=== PATIENT | male | born 1985 | race African-American/Black ===

== ENCOUNTER 2017-11-13 06:40 | Inpatient (IN) | payer BC ==
[2017-11-09 15:15] VITALS: BMI 39.1
[2017-11-13] MEDS ORDERED: HEPARIN NA (PORCINE) 5,000 UNITS/ML 1ML VIAL ONE (07:01)
[2017-11-13] MEDS ORDERED: ceFAZolin SODIUM 1 GM VIAL ONE (07:32)
[2017-11-13] MEDS ORDERED: fentaNYL CITRATE 250 MCG/5 ML VIAL ONE ×2 (07:51→09:19)
[2017-11-13] MEDS ORDERED: LIDOCAINE HCL/PF 2% SDV 5ML VIAL ONE (07:51)
[2017-11-13] MEDS ORDERED: PROPOFOL 20 ML ONE ×4 (07:51→11:41)
[2017-11-13] MEDS ORDERED: ROCURONIUM BROMIDE 50 MG/5 ML VIAL ONE ×3 (07:51→10:29)
[2017-11-13] MEDS ORDERED: MIDAZOLAM HCL 2 MG/2 ML SINGLE DOSE VIAL ONE ×3 (07:51)
[2017-11-13] MEDS ORDERED: ceFAZolin SODIUM 1 GM VIAL IVPB ONE (08:30)
[2017-11-13] MEDS ORDERED: DEXAMETHASONE SOD PHOSPHATE 4 MG/1 ML VIAL ONE (09:10)
[2017-11-13] MEDS ORDERED: ONDANSETRON 4 MG/2 ML VIAL ONE ×2 (09:10→11:43)
[2017-11-13] MEDS ORDERED: PHENYLEPHRINE HCL 10 MG/1 ML SINGLE DOSE VIAL ONE (10:18)
[2017-11-13] MEDS ORDERED: BACITRACIN 15 GM TUBE TOPICAL OINTMENT ONE (11:21)
[2017-11-13] MEDS ORDERED: GLYCOPYRROLATE 0.2 MG/1 ML VIAL ONE (11:43)
[2017-11-13] MEDS ORDERED: NEOSTIGMINE METHYLSULFATE 0.5 MG/ML - 10 ML MDV ONE (11:43)
[2017-11-13] MEDS ORDERED: DESFLURANE GAS 240 ML BOTTLE IH ONE (11:47)
[2017-11-13] MEDS ORDERED: ONDANSETRON 4 MG/2 ML VIAL IVPUSH PRN (11:58)
[2017-11-13] MEDS ORDERED: LACTATED RINGERS SOLUTION 1,000 ML IV SCH ×2 (12:00→13:30)
--- NOTE | 2017-11-13 12:43 | OP ---
Operative Note - Note: Operative Date: 11/13/17 Pre-Operative Diagnosis: Ventral/umbilical hernia Operation: Open ventral/umbilical hernia repiar with mesh Post-Operative Diagnosis: Same as Pre-op Surgeon: Elvis Harris Lithographing Machine Operator: Rupesh Nelson (gisel sanchez) Anesthesia: General Specimens Removed: None Estimated Blood Loss (mls): 5 Operative Report Dictated: Yes
[2017-11-13] MEDS ORDERED: oxyCODONE HCL 5 MG TABLET PO PRN (13:20)
[2017-11-13] MEDS ORDERED: morphine CARPU-JECT 10 MG/1 ML DISP.SYRIN IVPUSH PRN (13:20)
[2017-11-13] MEDS ORDERED: ONDANSETRON 4 MG/2 ML VIAL IVPB PRN (13:20)
--- NOTE | 2017-11-13 13:23 | SURG ---
Surgery Jig Bore Tool Maker Note Jig Bore Tool Maker: Danie Valdes PA-C Date of Service: 11/13/17 Diagnosis: Umbilical hernia, diastasis Procedure: Umbilical hernia repair with mesh and plication of diastasis and abdominoplasty I was present for the entirety of the operative procedure. For further detail, please refer to operative report. Visit type - Case Type Case Type: Scheduled Admission - New patient This patient is new to me today: Yes Date on this admission: 11/13/17
--- NOTE | 2017-11-13 13:26 | OP ---
Operative Note - Note: Operative Date: 11/13/17 Pre-Operative Diagnosis: diastasis recti Operation: abdominoplasty with umbilical float Findings: diastasis with umbilical hernia Post-Operative Diagnosis: Same as Pre-op Surgeon: Rupesh Nelson Boat Ride Operator: Danie Valdes Anesthesia: General Specimens Removed: skin and fat Estimated Blood Loss (mls): 2 Operative Report Dictated: Yes
--- NOTE | 2017-11-13 13:45 | OP ---
DATE OF OPERATION: 11/13/2017 SURGEON: Alla Harris M.D. ELECTRONIC COMMERCE SPECIALIST: Rupesh Nelson M.D. and Danie Neil PREOPERATIVE DIAGNOSIS: Ventral/umbilical hernia. POSTOPERATIVE DIAGNOSIS: Ventral/umbilical hernia. PROCEDURE: Open repair of ventral/umbilical hernia with mesh. SPECIMEN: None. ESTIMATED BLOOD LOSS: 5 mL DRAINS: None. ANESTHESIA: General endotracheal anesthesia. MESH USED: A 9 cm Symbotex mesh cut to 7 cm diameter. REASON FOR PROCEDURE: This is a 32-year-old gentleman who was seen by Dr. Nelson in the office and noted to have a large mid abdominal rectus diastasis. In addition, an umbilical hernia was noted as well. I saw him in the office and noted the umbilical hernia to be present as well. After describing different options, we decided to proceed with an open ventral/umbilical hernia repair with mesh. The risks and benefits of the procedure were explained. 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 He understood and signed informed consent. PROCEDURE: Dr. Nelson began the procedure and lifted up the anterior abdominal skin and subcutaneous tissue. After Dr. Nelson developed the skin flap from inferiorly to superiorly, the ventral/umbilical hernia defect was noted. This was approximately 2 cm x 3 cm in size. A 9 cm Symbotex mesh was then chosen and cut to 7 cm in diameter. The mesh was secured with 0 Prolene sutures to the fascia and the hernia defect was covered. In addition, the fascia was over sewed over the mesh to add further security. The repair was noted to be secured at the end of the repair. The remainder of the procedure was done by Dr. Nelson who imbricated over the repair as well as part of the diastasis repair. Patient tolerated the procedure well, was transferred to the recovery room. 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 ALLA HARRIS M.D. [id number] [facility]
[2017-11-13] MEDS ORDERED: HYDROmorphone *PCA* 6MG/30ML DISP.SYRIN PCA ONE (13:57)
--- NOTE | 2017-11-13 13:58 | OP ---
DATE OF OPERATION: 11/13/2017 TITLE OF PROCEDURE: Abdominoplasty with repair of diastasis recti. PREOPERATIVE DIAGNOSIS: Severe diastasis recti with umbilical hernia. POSTOPERATIVE DIAGNOSIS: Severe diastasis recti with umbilical hernia. ATTENDING SURGEON: Rupesh Nelson MD ROOFING TILE SORTER: AARTI Fry The procedure is performed in combination with an umbilical hernia repair performed by Dr. Elvis Harris. Patient is marked in the holding area. He is counseled on all risks, benefits, and alternatives to the procedure. He understands the imperfection of the aesthetics given the thinness of his abdominal skin, understands and agrees to proceed. DESCRIPTION OF PROCEDURE: Patient is given 5000 units of subcutaneous heparin preoperatively. Sequential compression stockings and JAMARI hose are applied preoperatively. He is given 2 g of Ancef preoperatively, brought to the operating room, positioned in a supine position with pillow placed underneath the knees. A Juarez catheter is placed after induction of general anesthesia. He is prepped and draped in standard surgical fashion. A timeout is called. Patient, procedure, site, and side are verified. An incision is made at the marked pubic crease. Dissection carried down to the level of the abdominal wall fascia and then carried along the length of the abdominal wall fascia until the umbilical hernia is identified. At this point, Dr. Harris performs his hernia repair and will dictate that portion of the procedure separately. The dissection is then carried to the xiphoid process in the midline and costal margins bilaterally, where hemostasis is achieved, and a midline plication is performed, first with a series of interrupted, buried, number 1 figure-of-8 Prolene suture, followed by a running locking figure-of-8 Prolene suture in the midline. Wound is copiously irrigated with normal saline. The skin is re-draped. Small excision of skin and fat is performed at the inferior extent of the abdominoplasty flap which is bleeding well with good vascularity. The umbilicus is sited, and it is pexied to the midline at its new location which is only 1 cm inferior to the preoperative location. This is done with a series of interrupted 3-0 Vicryl suture from the dermis to the abdominal wall fascia. The size 10 flat TICO drains, one drain is brought out through the incision, second inferior drain is brought out through a stab wound incision in the pubic skin. Drains are secured with 2-0 silk drain sutures. The incision is then closed with a series of interrupted, superficial 3-0 Vicryl suture, buried, followed by a series of interrupted, buried, deep dermal 3-0 Monocryl suture, followed by a running subcuticular 3-0 Monocryl suture. Several 5-0 nylon sutures are used to perfect the closure. All tissues appear pink and viable. The wounds are dressed with Steri-Strips, abdominal Xeroform, bacitracin are placed on the skin in and around the umbilicus. The ABD gauzes are applied. An abdominal binder is placed. Patient is transferred to Recovery after waking up without complication. RUPESH NELSON M.D. [id number]
[2017-11-13] MEDS: CEFAZOLIN 1 GM/D5W 1 GM/50 ML BAG IVPB SCH (18:49)
[2017-11-13] MEDS: HYDROmorphone *PCA* 10MG/50ML DISP.SYRIN PCA SCH (19:37)
[2017-11-14] MEDS: CEFAZOLIN 1 GM/D5W 1 GM/50 ML BAG IVPB SCH ×3 (01:43→20:43)
[2017-11-14] MEDS: morphine SULFATE 4 MG/ML VIAL IVPUSH PRN ×2 (05:26→10:04)
[2017-11-14] MEDS: HYDROmorphone *PCA* 10MG/50ML DISP.SYRIN PCA SCH ×2 (08:07→10:45)
[2017-11-14] MEDS ORDERED: SODIUM CHLORIDE 0.45% 1,000 ML IV SCH (08:15)
--- NOTE | 2017-11-14 08:17 | PN ---
Progress Note (short form) - Note Progress Note: POD 1 VSS but running mildly hypertensive Difficulty controlling pain and patient is having difficulty getting out of bed On exam: abdomen benign with all tissues viable and in tact, no collections TICO's thin serosanguinous fluid and functioning well Plan: Continue BROOMCORN SORTER, Pain management consult for anticipated discharge tomorrow PT to help with OOB/ambulate. Patient cannot use abdomen to sit up Re-start home antihypertensives. PA's and Dr. Harris aware and will follow.
--- NOTE | 2017-11-14 08:49 | HP ---
CHIEF COMPLAINT: "My stomach really hurts" PCP: HISTORY OF PRESENT ILLNESS: This is a 32 yo M with pmh of HTN, who is POD1 s/p for abdominoplasty, umbilical hernia repair due to diastasis recti and ventral umbilical hernia. Surgery was selectively performed for cosmetic reasons and patient denies having any GI problems associated with his condition. Surgery was completed without complication and with minimal blood loss, however patient was placed in tele post op for BP control, continuous pulse ox and pain control. He was initially unable to void and had to be straight cathed. He complains of 10/10 sharp nonradiating abd pain at surgical site moderately relieved by analgesia. He has been taking norvasc at home for several months. He denes cp, sob, cough, n/v, h/a, f/c. He had not passed flatus or had BM yet. Recent Travel: denies PAST MEDICAL HISTORY: as above PAST SURGICAL HISTORY: L rotator cuff surgery Social History: Smoking:denies Alcohol:denies Drugs: denies Family History: HTN Allergies No Known Drug Allergies Allergy (Verified 11/13/17 07:41) HOME MEDICATIONS: Home Medications Medication Instructions Recorded NK [No Known Home Medication] 11/09/17 REVIEW OF SYSTEMS CONSTITUTIONAL: Absent: fever, chills HEENT: Absent: rhinorrhea, nasal congestion, throat pain CARDIOVASCULAR: Absent: chest pain, syncope, palpitations RESPIRATORY: Absent: cough, shortness of breath, dyspnea with exertion, orthopnea, wheezing, stridor, hemoptysis GASTROINTESTINAL: Absent: abdominal pain, abdominal distension, nausea, vomiting GENITOURINARY: Absent: dysuria MUSCULOSKELETAL: Absent: myalgia, arthralgia SKIN: Absent: rash, itching, pallor HEMATOLOGIC/IMMUNOLOGIC: Absent: easy bleeding, easy bruising ENDOCRINE: Absent: unexplained weight gain, unexplained weight loss NEUROLOGIC: Absent: headache, focal weakness or paresthesias PSYCHIATRIC: Absent: anxiety, depression PHYSICAL EXAMINATION Vital Signs - 24 hr 11/13/17 11/13/17 11/13/17 12:44 13:00 13:15 Temperature 98.2 F Pulse Rate 101 H 93 H 83 Respiratory 18 18 18 Rate Blood Pressure 167/101 149/97 143/92 O2 Sat by Pulse 96 98 97 Oximetry (%) 11/13/17 11/13/17 11/13/17 13:30 13:45 14:00 Temperature Pulse Rate 85 89 97 H Respiratory 18 18 18 Rate Blood Pressure 144/87 141/86 141/102 O2 Sat by Pulse 96 95 96 Oximetry (%) 11/13/17 11/13/17 11/13/17 14:05 14:15 14:30 Temperature Pulse Rate 96 H 96 H 97 H Respiratory 18 18 18 Rate Blood Pressure 134/90 134/90 155/99 O2 Sat by Pulse 97 97 Oximetry (%) 11/13/17 11/13/17 11/13/17 14:35 14:45 15:36 Temperature 99 F 98.4 F Pulse Rate 97 H 97 H 117 H Respiratory 18 18 20 Rate Blood Pressure 152/86 152/86 167/104 O2 Sat by Pulse 97 Oximetry (%) 11/13/17 11/13/17 11/13/17 18:47 19:37 21:00 Temperature 98.3 F Pulse Rate 110 H 90 98 H Respiratory 18 18 18 Rate Blood Pressure 167/104 150/105 166/73 O2 Sat by Pulse Oximetry (%) 11/14/17 11/14/17 11/14/17 02:15 06:00 08:07 Temperature 98.1 F 98 F Pulse Rate 96 H 92 H 90 Respiratory 18 18 20 Rate Blood Pressure 172/84 152/106 163/87 O2 Sat by Pulse Oximetry (%) GENERAL: Awake, alert, and fully oriented, in moderate distress. HEAD: Normal with no signs of trauma. EYES: Pupils equal, round and reactive to light, extraocular movements intact, sclera anicteric, conjunctiva clear. No lid lag. EARS, NOSE, THROAT: Moist mucous membranes. NECK: supple LUNGS: good air movement, diffuse fine end expiratory wheezes HEART: Regular rate and rhythm, normal S1 and S2 ABDOMEN: Soft, tender, diffusely reduced bowel sounds, dressing in place changed today, 2 alvin drains with sero sanguineous fluid MUSCULOSKELETAL: No CVA tenderness. UPPER EXTREMITIES: 2+ pulses, warm, well-perfused. No cyanosis. No clubbing. No peripheral edema. LOWER EXTREMITIES: 2+ pulses, warm, well-perfused. No calf tenderness. No peripheral edema. NEUROLOGICAL: Cranial nerves II-XII grossly intact. Normal speech. PSYCHIATRIC: Cooperative. Good eye contact. Appropriate mood and affect. SKIN: Warm, dry ASSESSMENT/PLAN: This is a 32 yo M with pmh of HTN, who is POD1 s/p for abdominoplasty, umbilical hernia repair due to diastasis recti and ventral umbilical hernia. POD 1 s/p uneventful abdominoplasty, umbilical hernia repair -surgery instructions appreciated -continue cefazolin x 24 hr -pain control with ASSESSMENT MANAGER loading dose 0.5; toradol, oxycodone, tylenol -daily dressing change; wound care per surg, compressive dressing -monitor alvin output -Ivf NS @ 75 -colace; monitor for flatus, BM -regular diet -f/u labs Wheezing -f/u cxr -albuterol nebs -continuos pulse ox, NC O2 HTN -continue home norvasc -BP higher than usual due to pain, focus on pain control rather than escalation of BP meds FEN NS @ 75 f/u lytes regular diet hep sq Thank you for consultation. we will continue to follow. Problem List - Problem (1) HTN (hypertension) Code(s): I10 - ESSENTIAL (PRIMARY) HYPERTENSION (3) S/P hernia repair Code(s): Z98.890 - OTHER SPECIFIED POSTPROCEDURAL STATES; Z87.19 - PERSONAL HISTORY OF OTHER DISEASES OF THE DIGESTIVE SYSTEM (4) Pain Code(s): R52 - PAIN, UNSPECIFIED Visit type - Emergency Visit Emergency Visit: No - New Patient This patient is new to me today: Yes Date on this admission: 11/14/17 - Critical Care Critical Care patient: No Hospitalist Screening - Colonoscopy Questionnaire Colonoscopy Questionnaire: Colonoscopy Questionnaire - Patient: 50 - 75 years old and never had a screening colonoscopy: No History of colon or rectal polyps, or CA: No History of IBD, Crohn's disease or UC: No History of abdominal radiation therapy as a child: No - Relative: 1 with colon or rectal CA, or polyps at age 60 or younger: No Colon or rectal CA diagnosed at age 45 or younger: No Multiple relatives with colon or rectal CA: No - Outcome: Screening Result: Negative Screen
[2017-11-14] MEDS: DOCUSATE SODIUM 100 MG CAPSULE (FP) PO SCH ×2 (09:19→21:45)
[2017-11-14] MEDS: HEPARIN NA (PORCINE) 5,000 UNITS/ML 1ML VIAL SQ SCH ×3 (09:20→21:45)
[2017-11-14] MEDS ORDERED: amLODIPine BESYLATE 5 MG TABLET (FP) PO SCH (10:00)
--- NOTE | 2017-11-14 10:12 | PN ---
Progress Note, Physician Chief Complaint: Pt s/p day#1 for abdominoplasty, umbilical hernia repair. C/o pain - Current Medication List Current Medications: Active Medications Acetaminophen (Ofirmev Injection -) 1,000 mg IVPB ONCE ONE Stop: 11/14/17 10:10 Amlodipine Besylate (Norvasc -) 5 mg PO DAILY [facility] Last Admin: 11/14/17 10:04 Dose: 5 mg Docusate Sodium (Colace -) 100 mg PO BID [facility] Last Admin: 11/14/17 09:19 Dose: 100 mg Heparin Sodium (Porcine) (Heparin -) 5,000 unit SQ BID [facility] Last Admin: 11/14/17 10:01 Dose: Not Given Hydromorphone HCl (Dilaudid Latin Professor -) 10 mg MARZIPAN MOLDER MARZIPAN MOLDER [facility] PRN Reason: Protocol Stop: 11/16/17 13:21 Cefazolin Sodium 1 gm/ (Dextrose) 50 mls @ 100 mls/hr IVPB Q8H-IV [facility] Cefazolin Sodium (Ancef 1 Gm Premixed Ivpb -) 1 gm in 50 mls @ 100 mls/hr IVPB Q8H-IV [facility] Stop: 11/14/17 17:59 Last Admin: 11/14/17 09:19 Dose: 100 mls/hr Sodium Chloride (1/2 Normal Saline) 1,000 mls @ 75 mls/hr IV ASDIR [facility] Last Admin: 11/14/17 09:18 Dose: 75 mls/hr Ketorolac Tromethamine (Toradol Injection -) 30 mg IVPUSH Q8H-IV [facility] Stop: 11/16/17 10:14 Morphine Sulfate (Morphine Sulfate) 4 mg IVPUSH Q4H PRN PRN Reason: PAIN LEVEL 6-10 Last Admin: 11/14/17 10:04 Dose: 4 mg Ondansetron HCl (Zofran Injection) 4 mg IVPUSH Q6H PRN PRN Reason: NAUSEA AND/OR VOMITING Ondansetron HCl (Zofran Injection) 8 mg IVPB Q6H PRN PRN Reason: NAUSEA Oxycodone HCl (Roxicodone -) 10 mg PO Q4H PRN PRN Reason: PAIN LEVEL 4 - 6 - Objective Vital Signs: Vital Signs Temperature 98 F 11/14/17 06:00 Pulse Rate 90 04/04/18 08:07 Respiratory Rate 20 11/14/17 08:07 Blood Pressure 163/87 11/14/17 08:07 O2 Sat by Pulse Oximetry (%) 97 11/13/17 14:45 Assessment/Plan Pain inadequately controlled with current MARZIPAN MOLDER settings. Adjusted to increase dose to 0.5mg, added one dose of Ofirmev, and added toradol.
[2017-11-14] MEDS ORDERED: ACETAMINOPHEN 325 MG TABLET (FP) PO PRN (10:14)
[2017-11-14] MEDS ORDERED: ALBUTEROL SO4 0.083% IH SOL 2.5 MG/3 ML VIAL.NEB. NEB PRN (10:15)
--- NOTE | 2017-11-14 10:37 | CONSULT ---
Consultation: REQUESTING PROVIDER: CHIEF COMPLAINT: "My stomach really hurts" HISTORY OF PRESENT ILLNESS: This is a 32 yo M with pmh of HTN, who is POD1 s/p for abdominoplasty, umbilical hernia repair due to diastasis recti and ventral umbilical hernia. Surgery was selectively performed for cosmetic reasons and patient denies having any GI problems associated with his condition. Surgery was completed without complication and with minimal blood loss, however patient was placed in tele post op for BP control, continuous pulse ox and pain control. He was initially unable to void and had to be straight cathed. He complains of 10/10 sharp nonradiating abd pain at surgical site moderately relieved by analgesia. He has been taking norvasc at home for several months. He denes cp, sob, cough, n/v, h/a, f/c. He had not passed flatus or had BM yet. Recent Travel: denies PAST MEDICAL HISTORY: as above PAST SURGICAL HISTORY: L rotator cuff surgery Social History: Smoking:denies Alcohol:denies Drugs: denies Family History: HTN Allergies: none REVIEW OF SYSTEMS CONSTITUTIONAL: Absent: fever, chills HEENT: Absent: rhinorrhea, nasal congestion, throat pain CARDIOVASCULAR: Absent: chest pain, syncope, palpitations RESPIRATORY: Absent: cough, shortness of breath, dyspnea with exertion, orthopnea, wheezing, stridor, hemoptysis GASTROINTESTINAL: Absent: abdominal pain, abdominal distension, nausea, vomiting GENITOURINARY: Absent: dysuria MUSCULOSKELETAL: Absent: myalgia, arthralgia SKIN: Absent: rash, itching, pallor HEMATOLOGIC/IMMUNOLOGIC: Absent: easy bleeding, easy bruising ENDOCRINE: Absent: unexplained weight gain, unexplained weight loss NEUROLOGIC: Absent: headache, focal weakness or paresthesias PSYCHIATRIC: Absent: anxiety, depression PHYSICAL EXAMINATION Vital Signs - 24 hr 11/13/17 11/13/17 11/13/17 12:44 13:00 13:15 Temperature 98.2 F Pulse Rate 101 H 93 H 83 Respiratory 18 18 18 Rate Blood Pressure 167/101 149/97 143/92 O2 Sat by Pulse 96 98 97 Oximetry (%) 11/13/17 11/13/17 11/13/17 13:30 13:45 14:00 Temperature Pulse Rate 85 89 97 H Respiratory 18 18 18 Rate Blood Pressure 144/87 141/86 141/102 O2 Sat by Pulse 96 95 96 Oximetry (%) 11/13/17 11/13/17 11/13/17 14:05 14:15 14:30 Temperature Pulse Rate 96 H 96 H 97 H Respiratory 18 18 18 Rate Blood Pressure 134/90 134/90 155/99 O2 Sat by Pulse 97 97 Oximetry (%) 11/13/17 11/13/17 11/13/17 14:35 14:45 15:36 Temperature 99 F 98.4 F Pulse Rate 97 H 97 H 117 H Respiratory 18 18 20 Rate Blood Pressure 152/86 152/86 167/104 O2 Sat by Pulse 97 Oximetry (%) 11/13/17 11/13/17 11/13/17 18:47 19:37 21:00 Temperature 98.3 F Pulse Rate 110 H 90 98 H Respiratory 18 18 18 Rate Blood Pressure 167/104 150/105 166/73 O2 Sat by Pulse Oximetry (%) 11/14/17 11/14/17 11/14/17 02:15 06:00 08:07 Temperature 98.1 F 98 F Pulse Rate 96 H 92 H 90 Respiratory 18 18 20 Rate Blood Pressure 172/84 152/106 163/87 O2 Sat by Pulse Oximetry (%) Active Medications Generic Name Dose Route Start Last Admin Trade Name Freq PRN Reason Stop Dose Admin Acetaminophen 1,000 mg 11/14/17 10:09 Ofirmev Injection - IVPB 11/14/17 10:10 ONCE ONE Acetaminophen 650 mg 11/14/17 10:14 Tylenol - PO Q4H PRN PAIN LEVEL 1-5 Albuterol Sulfate amp 11/14/17 10:15 Ventolin 0.083% Nebulizer Soln - NEB Q4H PRN SHORT OF BREATH/WHEEZING Amlodipine Besylate 5 mg 11/14/17 10:00 11/14/17 10:04 Norvasc - PO 5 mg DAILY [facility] Administration Docusate Sodium 100 mg 11/14/17 10:00 11/14/17 09:19 Colace - PO 100 mg BID [facility] Administration Heparin Sodium (Porcine) 5,000 unit 11/14/17 09:00 11/14/17 10:01 Heparin - SQ Not Given BID [facility]OK Hydromorphone HCl 10 mg 11/14/17 10:06 Dilaudid Activity Manager - LIMEROCK TOWER LOADER 11/16/17 13:21 LIMEROCK TOWER LOADER ASHOK Protocol Cefazolin Sodium 1 gm/ 50 mls @ 100 mls/hr 11/13/17 18:00 Dextrose IVPB Q8H-IV [facility] Cefazolin Sodium 1 gm in 50 mls @ 100 mls/hr 11/13/17 18:00 11/14/17 09:19 Ancef 1 Gm Premixed Ivpb - IVPB 11/14/17 17:59 100 mls/hr Q8H-IV [facility] Administration Sodium Chloride 1,000 mls @ 75 mls/hr 11/14/17 08:15 11/14/17 09:18 1/2 Normal Saline IV 75 mls/hr ASDIR [facility] Administration Ketorolac Tromethamine 30 mg 11/14/17 10:15 Toradol Injection - IVPUSH 11/16/17 10:14 Q8H-IV [facility] Morphine Sulfate 4 mg 11/14/17 05:22 11/14/17 10:04 Morphine Sulfate IVPUSH 4 mg Q4H PRN Administration PAIN LEVEL 6-10 Ondansetron HCl 4 mg 11/13/17 11:58 Zofran Injection IVPUSH Q6H PRN NAUSEA AND/OR VOMITING Ondansetron HCl 8 mg 11/13/17 13:20 Zofran Injection IVPB Q6H PRN NAUSEA Oxycodone HCl 10 mg 11/13/17 13:20 Roxicodone - PO Q4H PRN PAIN LEVEL 4 - 6 GENERAL: Awake, alert, and fully oriented, in moderate distress. HEAD: Normal with no signs of trauma. EYES: Pupils equal, round and reactive to light, extraocular movements intact, sclera anicteric, conjunctiva clear. No lid lag. EARS, NOSE, THROAT: Moist mucous membranes. NECK: supple LUNGS: good air movement, diffuse fine end expiratory wheezes HEART: Regular rate and rhythm, normal S1 and S2 ABDOMEN: Soft, tender, diffusely reduced bowel sounds, dressing in place changed today, 2 alvin drains with sero sanguineous fluid MUSCULOSKELETAL: No CVA tenderness. UPPER EXTREMITIES: 2+ pulses, warm, well-perfused. No cyanosis. No clubbing. No peripheral edema. LOWER EXTREMITIES: 2+ pulses, warm, well-perfused. No calf tenderness. No peripheral edema. NEUROLOGICAL: Cranial nerves II-XII grossly intact. Normal speech. PSYCHIATRIC: Cooperative. Good eye contact. Appropriate mood and affect. SKIN: Warm, dry ASSESSMENT/PLAN: This is a 32 yo M with pmh of HTN, who is POD1 s/p for abdominoplasty, umbilical hernia repair due to diastasis recti and ventral umbilical hernia. POD 1 s/p uneventful abdominoplasty, umbilical hernia repair -surgery instructions appreciated -continue cefazolin x 24 hr -pain control with LIMEROCK TOWER LOADER loading dose 0.5; toradol, oxycodone, tylenol -daily dressing change; wound care per surg, compressive dressing -monitor alvin output -Ivf 1/2NS @ 75 -colace; monitor for flatus, BM -regular diet -f/u labs Wheezing -f/u cxr -albuterol nebs -continuos pulse ox, NC O2 -incentive spirometer HTN -continue home norvasc -BP higher than usual due to pain, focus on pain control rather than escalation of BP meds FEN 1/2NS @ 75 f/u lytes regular diet hep sq Dispo: We will continue to follow the patient. Thank you for this consultative opportunity. Problem List - Problems (1) HTN (hypertension) Code(s): I10 - ESSENTIAL (PRIMARY) HYPERTENSION (3) S/P hernia repair Code(s): Z98.890 - OTHER SPECIFIED POSTPROCEDURAL STATES; Z87.19 - PERSONAL HISTORY OF OTHER DISEASES OF THE DIGESTIVE SYSTEM (4) Pain Code(s): R52 - PAIN, UNSPECIFIED Visit type - Emergency Visit Emergency Visit: No - New Patient This patient is new to me today: Yes Date on this admission: 11/14/17 - Critical Care Critical Care patient: No
[2017-11-14 11:27] LABS: BASO % 0.3 % (0-2.0); EOS % 0.3 % (0-4.5); HEMATOCRIT 43.8 % (35.4-49); HEMOGLOBIN 14.3 GM/dL (11.7-16.9); LYMPH % 9.1 % (8-40); MCHC 32.6 g/dl (32.0-35.9); MEAN CELL VOLUME 86.1 fl (80-96); MEAN PLT VOLUME 9.3 fl (7.5-11.1); MONO % 7.3 % (3.8-10.2); PLATELET COUNT 231 K/MM3 (134-434); RBC 5.09 M/mm3 (4.00-5.60); RDW 14.8 % (11.9-15.9); WHITE BLOOD COUNT 8.9 K/mm3 (4.0-10.0)
[2017-11-14 11:46] LABS: ALBUMIN 4.1 g/dl (3.4-5.0); ANION GAP 7 (8-16); BILIRUBIN,TOTAL 0.6 mg/dL (0.2-1.0); BLOOD UREA NITROGEN 12 mg/dL (7-18); CALCIUM 8.7 mg/dL (8.5-10.1); CHLORIDE 102 mmol/L (98-107); CO2 28 mmol/L (21-32); CREATININE 1.3 mg/dL (0.7-1.3); GLUCOSE,RANDOM 105 mg/dL (74-106); MAGNESIUM 2.2 mg/dL (1.8-2.4); PHOSPHOROUS 4.1 mg/dL (2.5-4.9); POTASSIUM 4.2 mmol/L (3.5-5.1); SGOT/AST 33 U/L (15-37); SGPT/ALT 78 U/L (12-78); SODIUM 137 mmol/L (136-145); TOT PROT 7.1 g/dl (6.4-8.2)
[2017-11-14 11:47] LABS: ALK PHOS 59 U/L (45-117)
--- NOTE | 2017-11-14 12:21 | PN ---
Teaching Attending Note Name of Resident: Natalya Cotto ATTENDING PHYSICIAN STATEMENT I saw and evaluated the patient. I reviewed the resident's note and discussed the case with the resident. I agree with the resident's findings and plan as documented. SUBJECTIVE:very sleepy. answers some questions and states pain is better. denies Cp, SOB, fever, chills, as per mother present at bedside, did not take his medication yesterday and as per her he is not compliant with his medications. does not believe he was worked up for secondary HTN but everyone in her family deals with HTN. he does work out regularly and knows he takes supplemental protein powder but is unaware if he takes other supplements. OBJECTIVE: Last Vital Signs Temp Pulse Resp BP Pulse Ox 98.2 F 90 18 163/87 95 11/14/17 08:12 11/14/17 08:12 11/14/17 08:12 11/14/17 08:12 11/14/17 08:12 General lethargic, alert to verbal stimuli CV Ss1 S2 RRR no murmur/rub/gallop Lungs CTA anterorly Abdomen abdominal binder in place ASSESSMENT AND PLAN: 32yo M with PMH HTN presented for scheduled ventral/umbilica hernia repair and abdominoplasty was consulted by surgical team for BP control 1. HTN- uncontrolled. likely induced by pain. start tylenol RTC to aid in pain control. dilaudid mesmerist pump dose increased. did not take medications yesterday. will need to d/w pt importance of compliance. discuss in more detail if taking other supplements for working out. will cont norvasc 5mg. 2. Umbilical/ventral hernia repair and abdominoplasty- s/p Open ventral/ umbilical hernia repiar with mesh and abdominoplasty with umbilical float . has abdominal binder in place. 3. thank you for this consultative opportunity. will follow
[2017-11-14] MEDS: ACETAMINOPHEN 325 MG TABLET (FP) PO SCH ×3 (12:22→23:32)
[2017-11-14] MEDS: KETOROLAC TROMETHAMINE 30 MG/1 ML VIAL IVPUSH SCH ×2 (12:24→17:27)
[2017-11-14] MEDS: ACETAMINOPHEN 1000 MG/100 ML VIAL (NON FORMULARY) IVPB ONE (12:29)
--- NOTE | 2017-11-14 15:08 | PATH ---
Surgical Pathology Report Patient Name: CAMMY HDEZ Med. Rec. #: [id number] /Age/Gender: 1985 (Age: 32) / M Account: <[id number]> Location: AMBULATORY SURG Taken: 11/13/2017 Received: 11/13/2017 Reported: 11/14/2017 Physicians: Scout Shelton Specimen(s) Received ABDOMINAL SKIN Clinical History Umbilical hernia without obstruction Final Diagnosis SKIN, ABDOMEN, EXCISION: UNREMARKABLE SKIN. Electronically Signed Anatoly Rodriguez M.D. Gross Description Received in formalin labeled "abdominal skin," is a 15.0 x 2.7 cm brown, elliptical, unoriented portion of skin excised to a depth of 1.0 cm. The epidermal surface displays a focal umbilication. Outfitter Cabin sections are submitted in one cassette. /11/13/201711/13/2017
--- NOTE | 2017-11-14 17:42 | PN ---
Progress Note (short form) - Note Progress Note: POD 1 Pain controlled with medication On diet Vital Signs Period Temp Pulse Resp BP Sys/Ramon Pulse Ox Last 24 Hr 97.7 F-98.3 F 81-110 18-20 133-172/73-107 95 Abd soft, binder in place TICO x 2 serosanguinous CBC, BMP 11/14/17 10:35 11/14/17 10:35 Ambulate Incentive spirometer Abdominal binder at all times
[2017-11-14] MEDS ORDERED: amLODIPine BESYLATE 5 MG TABLET (FP) PO ONE (18:29)
[2017-11-15] MEDS: CEFAZOLIN 1 GM/D5W 1 GM/50 ML BAG IVPB SCH ×3 (01:20→18:31)
[2017-11-15] MEDS: KETOROLAC TROMETHAMINE 30 MG/1 ML VIAL IVPUSH SCH ×2 (01:20→11:00)
[2017-11-15] MEDS: ACETAMINOPHEN 325 MG TABLET (FP) PO SCH ×2 (06:32→12:13)
[2017-11-15] MEDS ORDERED: amLODIPine BESYLATE 10 MG TABLET (FP) PO SCH (07:26)
[2017-11-15 07:49] LABS: BASO % 0.5 % (0-2.0); EOS % 0.6 % (0-4.5); HEMOGLOBIN 12.3 GM/dL (11.7-16.9); LYMPH % 11.9 % (8-40); MCH 28.6 pg (25.7-33.7); MCHC 33.4 g/dl (32.0-35.9); MEAN CELL VOLUME 85.8 fl (80-96); MEAN PLT VOLUME 9.4 fl (7.5-11.1); MONO % 8.3 % (3.8-10.2); NEUT % 78.7 % (42.8-82.8); PLATELET COUNT 224 K/MM3 (134-434); RBC 4.31 M/mm3 (4.00-5.60); RDW 14.5 % (11.9-15.9); WHITE BLOOD COUNT 8.6 K/mm3 (4.0-10.0)
--- NOTE | 2017-11-15 08:05 | PN ---
Progress Note (short form) - Note Progress Note: POD #2 abdominoplasty with hernia repair. Patient seen and examined at bedside. States he is still having significant pain when he moves. He has been ambulating with the walker and voiding without restriction. He denies any CP, SOB, N/V Fever or chills. CBC, BMP 11/15/17 07:00 Vital Signs Temp 97.8 F 11/15/17 06:11 Pulse 95 H 11/15/17 06:11 Resp 19 11/15/17 06:11 BP 157/76 11/15/17 06:11 Pulse Ox 96 11/15/17 06:00 Intake & Output 18 11/14/17 11/15/17 11:59 23:59 11:59 Intake Total 900 1500 1860 Output Total 70 950 795 Balance 633 983 2177 Weight 250 lb Intake: IV 900 900 1/2 Normal Saline 1,000 900 ml @ 75 mls/hr IV ASDIR ASHOK Rx#:[id number] Lactated Ringers Solution 900 1,000 ml @ 75 mls/hr IV ASDIR ASHOK Rx#:[id number] IVPB 100 Oral 1500 860 Output: Drainage 70 150 195 TICO #1 10 80 40 TICO#2 60 70 155 Urine 800 600 Void 800 600 Other: Voiding Method Urinal Urinal Urinal # Unmeasured Voids Void 450 Bowel Movement No Height 5 ft 7 in Body Mass Index (BMI) 39.1 Weight Measurement Method Stated by Patient PE: A&Ox3, NAD unlabored resp on RA Abdomen: Large area of focal edema surrounded by Ecchymosis at subxyphoid space , area is tense and not fluctuant. Diffuse TTP throughout all quadrants with some ecchymosis appropriate to status. Incision C/D/I with steris in place, 2 J/ P drains at right lower quadrant in place with SS drainage. b/l LE compartments soft, supple and non-tender with +2 pedal pulses Problem List - Problems (1) Hematoma Assessment/Plan: POD#2 Abdominoplasty with hernia repair, Hemodynamiclly stable, with likely hematoma at subxyphoid space. Plan: 1) OR today for Evacuation of hematoma 2) NPO 3) Abd binder at all times 4) DVT and GI prophylaxis evaluation and plan discussed with Dr Nelson Code(s): T14.8XXA - OTHER INJURY OF UNSPECIFIED BODY REGION, INITIAL ENCOUNTER (3) S/P hernia repair Code(s): Z98.890 - OTHER SPECIFIED POSTPROCEDURAL STATES; Z87.19 - PERSONAL HISTORY OF OTHER DISEASES OF THE DIGESTIVE SYSTEM
[2017-11-15 08:40] LABS: ANION GAP 9 (8-16); BLOOD UREA NITROGEN 10 mg/dL (7-18); CALCIUM 8.4 mg/dL (8.5-10.1); CHLORIDE 97 mmol/L (98-107); CO2 27 mmol/L (21-32); CREATININE 1.3 mg/dL (0.7-1.3); GLUCOSE,RANDOM 114 mg/dL (74-106); MAGNESIUM 2.3 mg/dL (1.8-2.4); PHOSPHOROUS 4.2 mg/dL (2.5-4.9); POTASSIUM 4.6 mmol/L (3.5-5.1); SODIUM 133 mmol/L (136-145)
[2017-11-15] MEDS: HYDROmorphone *PCA* 10MG/50ML DISP.SYRIN PCA SCH ×4 (09:00→21:01)
--- NOTE | 2017-11-15 09:09 | PN ---
Progress Note, Physician Chief Complaint: POD #2 s/p abdominoplasty/hernia repair - Current Medication List Current Medications: Active Medications Acetaminophen (Tylenol -) 650 mg PO Q6HPO [facility] Last Admin: 11/15/17 06:32 Dose: 650 mg Albuterol Sulfate (Ventolin 0.083% Nebulizer Soln -) 1 amp NEB Q4H PRN PRN Reason: SHORT OF BREATH/WHEEZING Last Admin: 11/15/17 07:35 Dose: 1 amp Amlodipine Besylate (Norvasc -) 10 mg PO DAILY [facility] Docusate Sodium (Colace -) 100 mg PO BID [facility] Last Admin: 11/14/17 21:45 Dose: 100 mg Heparin Sodium (Porcine) (Heparin -) 5,000 unit SQ BID [facility] Last Admin: 11/14/17 21:45 Dose: 5,000 unit Hydromorphone HCl (Dilaudid Insurance Collector -) 10 mg COMPLIANCE ATTORNEY COMPLIANCE ATTORNEY [facility] PRN Reason: Protocol Stop: 11/16/17 13:21 Last Admin: 11/15/17 09:00 Dose: 10 mg Cefazolin Sodium (Ancef 1 Gm Premixed Ivpb -) 1 gm in 50 mls @ 100 mls/hr IVPB Q8H-IV [facility] Last Admin: 11/15/17 01:20 Dose: 100 mls/hr Sodium Chloride (1/2 Normal Saline) 1,000 mls @ 75 mls/hr IV ASDIR [facility] Last Admin: 11/14/17 09:18 Dose: 75 mls/hr Ketorolac Tromethamine (Toradol Injection -) 30 mg IVPUSH Q8H-IV [facility] Stop: 11/16/17 10:14 Last Admin: 11/15/17 01:20 Dose: 30 mg Morphine Sulfate (Morphine Sulfate) 4 mg IVPUSH Q4H PRN PRN Reason: PAIN LEVEL 6-10 Last Admin: 11/14/17 10:04 Dose: 4 mg Ondansetron HCl (Zofran Injection) 4 mg IVPUSH Q6H PRN PRN Reason: NAUSEA AND/OR VOMITING Ondansetron HCl (Zofran Injection) 8 mg IVPB Q6H PRN PRN Reason: NAUSEA Oxycodone HCl (Roxicodone -) 10 mg PO Q4H PRN PRN Reason: PAIN LEVEL 4 - 6 - Objective Vital Signs: Vital Signs Temperature 97.8 F 11/15/17 06:11 Pulse Rate 98 H 11/15/17 09:00 Respiratory Rate 18 11/15/17 09:00 Blood Pressure 125/76 11/15/17 09:00 O2 Sat by Pulse Oximetry (%) 96 11/15/17 06:00 Labs: CBC, BMP 11/15/17 07:00 Assessment/Plan Pt pain much better controlled today, though still with pain. Would keep COMPLIANCE ATTORNEY for now.
[2017-11-15] MEDS ORDERED: LACTATED RINGERS SOLUTION 1,000 ML IV SCH ×2 (09:41→15:15)
[2017-11-15] MEDS: HEPARIN NA (PORCINE) 5,000 UNITS/ML 1ML VIAL SQ SCH (10:01)
[2017-11-15] MEDS: DOCUSATE SODIUM 100 MG CAPSULE (FP) PO SCH ×2 (10:01→22:25)
[2017-11-15 10:30] LABS: BASO % 0.6 % (0-2.0); HEMATOCRIT 36.8 % (35.4-49); HEMOGLOBIN 12.1 GM/dL (11.7-16.9); LYMPH % 17.4 % (8-40); MCH 28.2 pg (25.7-33.7); MCHC 32.8 g/dl (32.0-35.9); MEAN CELL VOLUME 86.1 fl (80-96); MONO % 9.3 % (3.8-10.2); NEUT % 71.7 % (42.8-82.8); PLATELET COUNT 220 K/MM3 (134-434); RBC 4.27 M/mm3 (4.00-5.60); RDW 14.6 % (11.9-15.9); WHITE BLOOD COUNT 7.7 K/mm3 (4.0-10.0)
--- NOTE | 2017-11-15 10:52 | PN ---
Progress Note (short form) - Note Progress Note: Patient evaluated by PA this morning found to have new collection in upper abdomen c/w subcutaneous hematoma. On my exam there is clear hematoma with new bloody output in the drain. Pain is improved, Vitals are stable with no signs of distress. I have discussed with the patient the recommendation for re-exploration and control of bleeding with evacuation of hematoma. He understands and agrees to proceed now. Currently there is no indication for transfusion. We will continue to observe. he is typed and crossed if necessary. I will be out of town as of this afternoon, and my covering physician who is aware of the plan is Dr. Karen Etienne. She will be monitoring him for recurrence of the hematoma and will treat accordingly. The patient is also aware of this coverage arrangement.
[2017-11-15] MEDS ORDERED: SUCCINYLCHOLINE CHLORIDE 200 MG/10 ML VIAL ONE (11:22)
[2017-11-15] MEDS ORDERED: ROCURONIUM BROMIDE 50 MG/5 ML VIAL ONE (11:22)
[2017-11-15] MEDS ORDERED: fentaNYL CITRATE 250 MCG/5 ML VIAL ONE (11:22)
[2017-11-15] MEDS ORDERED: ceFAZolin SODIUM 1 GM VIAL ONE (11:24)
[2017-11-15] MEDS ORDERED: LIDOCAINE HCL/PF 2% SDV 5ML VIAL ONE ×2 (11:24→13:07)
[2017-11-15] MEDS ORDERED: ceFAZolin SODIUM 1 GM VIAL IVPB ONE (11:25)
[2017-11-15] MEDS ORDERED: DEXAMETHASONE SOD PHOSPHATE 4 MG/1 ML VIAL ONE (12:00)
[2017-11-15] MEDS ORDERED: NEOSTIGMINE METHYLSULFATE 0.5 MG/ML - 10 ML MDV ONE (12:19)
[2017-11-15] MEDS ORDERED: GLYCOPYRROLATE 0.2 MG/1 ML VIAL ONE (12:19)
--- NOTE | 2017-11-15 12:40 | PN ---
Physical Exam: SUBJECTIVE: Patient seen and examined. States pain 10/10; INTERMISSION COORDINATOR pump currently empty. c/o scrotal swelling since last night. OBJECTIVE: Vital Signs Period Temp Pulse Resp BP Sys/Ramon Pulse Ox Last 24 Hr 97.6 F-99.4 F 81-138 18-20 125-183/76-116 95-96 GENERAL: aaox3, moderate distress LUNGS: CTAB, no wheezes, rales or rhonchi appreciated HEART: tachycardia, normal s1/s2, no m/r/g ABDOMEN: abdominal binder in place, 2x JPs appears to be draining duane blood LOWER EXTREMITIES: 2+ DP pulses, wwp, no edema CBC, BMP 11/15/17 10:00 11/15/17 07:00 Hepatic Panel Total Bilirubin 0.6 mg/dL (0.2-1.0) 11/14/17 10:35 AST 33 U/L (15-37) 11/14/17 10:35 ALT 78 U/L (12-78) 11/14/17 10:35 Alkaline Phosphatase 59 U/L (45-117) 11/14/17 10:35 Albumin 4.1 g/dl (3.4-5.0) 11/14/17 10:35 Active Medications Acetaminophen (Tylenol -) 650 mg PO Q6HPO [facility] Last Admin: 11/15/17 12:13 Dose: Not Given Albuterol Sulfate (Ventolin 0.083% Nebulizer Soln -) 1 amp NEB Q4H PRN PRN Reason: SHORT OF BREATH/WHEEZING Last Admin: 11/15/17 07:35 Dose: 1 amp Amlodipine Besylate (Norvasc -) 10 mg PO DAILY [facility] Last Admin: 11/15/17 10:02 Dose: Not Given Docusate Sodium (Colace -) 100 mg PO BID [facility] Last Admin: 11/15/17 10:01 Dose: Not Given Heparin Sodium (Porcine) (Heparin -) 5,000 unit SQ BID [facility] Last Admin: 11/15/17 10:01 Dose: Not Given Hydromorphone HCl (Dilaudid Bushel Worker -) 10 mg INTERMISSION COORDINATOR INTERMISSION COORDINATOR [facility] PRN Reason: Protocol Stop: 11/16/17 13:21 Last Admin: 11/15/17 09:00 Dose: 10 mg Cefazolin Sodium (Ancef 1 Gm Premixed Ivpb -) 1 gm in 50 mls @ 100 mls/hr IVPB Q8H-IV [facility] Last Admin: 11/15/17 10:03 Dose: 100 mls/hr Lactated Ringer's (Lactated Ringers Solution) 1,000 mls @ 150 mls/hr IV ASDIR [facility] Last Admin: 11/15/17 10:01 Dose: 150 mls/hr Ketorolac Tromethamine (Toradol Injection -) 30 mg IVPUSH Q8H-IV [facility] Stop: 11/16/17 10:14 Last Admin: 11/15/17 11:00 Dose: Not Given Morphine Sulfate (Morphine Sulfate) 4 mg IVPUSH Q4H PRN PRN Reason: PAIN LEVEL 6-10 Last Admin: 11/14/17 10:04 Dose: 4 mg Ondansetron HCl (Zofran Injection) 4 mg IVPUSH Q6H PRN PRN Reason: NAUSEA AND/OR VOMITING Ondansetron HCl (Zofran Injection) 8 mg IVPB Q6H PRN PRN Reason: NAUSEA Oxycodone HCl (Roxicodone -) 10 mg PO Q4H PRN PRN Reason: PAIN LEVEL 4 - 6 ASSESSMENT/PLAN: 32yo man with PMH of HTN who is s/p abdominoplasty and umbilical hernia repair and found to be hypertensive after surgery. #POD2 s/p abdominoplasty and umbilical hernia repair c/b suspected hematoma and decreased BP this AM -Pt taken back to OR today -Pain control with INTERMISSION COORDINATOR, toradol, oxycodone, tylenol -Trend CBC #HTN -Hold home Norvasc, consider resuming when SBP>140 #FEN Restart NS IVFs monitor lytes Na controlled diet Will follow with you. Plan d/w attending Dr. Ranjit Robbins MD PGY1- Internal Medicine Visit type - Emergency Visit Emergency Visit: No - New Patient This patient is new to me today: Yes Date on this admission: 11/15/17 - Critical Care Critical Care patient: No
[2017-11-15] MEDS ORDERED: MORPHINE SULFATE 10 MG/1 ML *VIAL ONE (12:43)
[2017-11-15] MEDS ORDERED: BACITRACIN 15 GM TUBE TOPICAL OINTMENT ONE (13:13)
[2017-11-15] MEDS ORDERED: NITROGLYCERIN 0.1 MG/HOUR TD PATCH TD ONE (13:30)
[2017-11-15] MEDS ORDERED: LABETALOL HCL 5 MG/1 ML (100MG/20 ML VIAL) ONE (14:25)
[2017-11-15] MEDS ORDERED: NITROGLYCERIN 2% OINTMENT - 1GM PACKET TD ONE (14:30)
--- NOTE | 2017-11-15 15:04 | OP ---
Operative Note - Note: Operative Date: 11/15/17 Pre-Operative Diagnosis: hematoma Operation: evacuation of subcutaneous hematoma with control of bleeding Findings: 800cc blood with single bleeding vessel Post-Operative Diagnosis: Same as Pre-op Surgeon: Rupesh Nelson Propellant Charge Zone Assembler: Elvis Harris Anesthesia: General Estimated Blood Loss (mls): 800 Drains & Tubes with Location: alvin x 2
[2017-11-15] MEDS ORDERED: ONDANSETRON 4 MG/2 ML VIAL IVPUSH PRN ×3 (15:06→15:28)
[2017-11-15] MEDS ORDERED: HYDROmorphone HCL CARPU-JECT 1 MG/1 ML DISP.SYRIN IVPUSH PRN (15:06)
[2017-11-15] MEDS ORDERED: ACETAMINOPHEN 1000 MG/100 ML VIAL (NON FORMULARY) IVPB ONE (15:08)
[2017-11-15] MEDS: LACTATED RINGERS SOLUTION 1,000 ML IV SCH (15:25)
--- NOTE | 2017-11-15 15:30 | OP ---
DATE OF OPERATION: 11/15/2017 TITLE OF PROCEDURE: Return to operating room for evacuation of subcutaneous abdominal hematoma with control of active bleeding vessel. ATTENDING SURGEON: Rupesh Solorzano MD CO-SURGEON: Elvis Harris MD PREOPERATIVE DIAGNOSIS: Subcutaneous abdominal hematoma. POSTOPERATIVE DIAGNOSIS: Subcutaneous abdominal hematoma. The patient is counseled on all the risks, benefits, and alternatives to the procedure, understands, and agrees to proceed. DESCRIPTION OF PROCEDURE: The patient is brought to the operating room, placed in a supine position. Position is carefully checked by surgical and anesthesia teams. Sequential compression devices are applied. All positioning aids are carefully used. After given general anesthesia, Juarez catheter is placed, and the patient is prepped and draped in standard surgical fashion. A timeout is called. Patient, procedure, site, and side are verified. The procedure is as follows. The abdominal incision is opened, and the dissection is carried down into the subcutaneous plane where a hematoma is evacuated. The umbilicus is released from its point of fixation at the midline fascia, and roughly 800 mL of clot is removed. A solitary pulsatile bleeding blood vessel is seen which is a stump of a couturiere coming off of the left rectus abdominis muscle. This is cauterized and suture ligated with 2 separate [id number] 2-0 Vicryl sutures. The wound is copiously irrigated, pulse lavage with 3 L of normal saline. A thorough exploration of the wound in all its quadrants is performed. Any potential bleeding source is cauterized or suture ligated with [id number] 2-0 Vicryl suture. Thorough repeat inspection is performed, and no identifiable bleeding sources are identified. The umbilicus is sited. It is re-pexied to the abdominal wall fascia with 3-0 Vicryl suture. A new, size 10 flat TICO drain is placed, one traveling vertically up the superior extent of the wound and a second drain traversing across the inferior extent of the wound. Each drain is brought out through the surgical wound incision. The closure is then performed with a series of interrupted superficial fascial system, buried, 3-0 Vicryl suture, followed by a series of interrupted, buried, deep dermal, 3-0 Monocryl suture, followed by a running subcuticular 3-0 Monocryl suture. Steri-Strips are used for dressings. The umbilicus and abdomen are treated with bacitracin and Xeroform. ABD gauze is applied. A compressive abdominal binder is applied. Patient is awoken from anesthesia, transferred to Recovery without complication. RUPESH SOLORZANO M.D. [id number]
--- NOTE | 2017-11-15 15:38 | PN ---
Progress Note (short form) - Note Progress Note: post op check: TICO's functioning with low output. Dressings changed and no evidence of recurrent hematoma. Patient instructed on bedrest BP 110/82, HR 90, SaO2 98> Will check CBC at 6. Dr. Harris to evaluate and treat if needed. Dr. Goodson aware of operative findings and will asses this evening. No sq heparin, will duplex legs tomorrow. CLD today Plan hydration and cevallos today. TOV, OOB to chair tomorrow,advance diet tomorrow. anticipate discharge with binder and TICO's, duracef, percocet, colace on Sunday. f/u jasmyne 1week
[2017-11-15] MEDS: ACETAMINOPHEN 1000 MG/100 ML VIAL (NON FORMULARY) IVPB ONE (15:40)
--- NOTE | 2017-11-15 16:55 | PN ---
Teaching Attending Note Name of Resident: Lavonne Robbins ATTENDING PHYSICIAN STATEMENT I reviewed the resident's note and discussed the case with the resident. I agree with the resident's findings and plan as documented. Notified by RN that pt BP was lower than normal 120/80. large amount of bleeding noted in TICO drain. pt was to go emergently for the OR advised to hold BP at this time and start IVF. have been unable to evaluate pt today as been in the OR all day. will re-evluate in the AM
[2017-11-15 18:39] LABS: BASO % 0.2 % (0-2.0); HEMATOCRIT 31.6 % (35.4-49); HEMOGLOBIN 10.6 GM/dL (11.7-16.9); LYMPH % 5.8 % (8-40); MCH 28.4 pg (25.7-33.7); MCHC 33.5 g/dl (32.0-35.9); MEAN CELL VOLUME 84.8 fl (80-96); MEAN PLT VOLUME 9.6 fl (7.5-11.1); MONO % 4.5 % (3.8-10.2); NEUT % 89.5 % (42.8-82.8); PLATELET COUNT 215 K/MM3 (134-434); RBC 3.72 M/mm3 (4.00-5.60); RDW 14.6 % (11.9-15.9); WHITE BLOOD COUNT 10.3 K/mm3 (4.0-10.0)
[2017-11-15] MEDS ORDERED: morphine SULFATE 4 MG/ML VIAL IVPUSH ONE (22:15)
[2017-11-16] MEDS: CEFAZOLIN 1 GM/D5W 1 GM/50 ML BAG IVPB SCH ×3 (02:22→18:29)
[2017-11-16] MEDS: ACETAMINOPHEN 325 MG TABLET (FP) PO PRN ×4 (02:26→22:13)
[2017-11-16] MEDS: HYDROmorphone *PCA* 10MG/50ML DISP.SYRIN PCA SCH ×2 (02:36→18:29)
[2017-11-16] MEDS: LACTATED RINGERS SOLUTION 1,000 ML IV SCH (06:37)
[2017-11-16] MEDS: ALBUTEROL SO4 0.083% IH SOL 2.5 MG/3 ML VIAL.NEB. NEB PRN ×2 (07:21→20:15)
[2017-11-16 07:36] LABS: BASO % 0.4 % (0-2.0); EOS % 0.3 % (0-4.5); HEMATOCRIT 28.4 % (35.4-49); HEMOGLOBIN 9.4 GM/dL (11.7-16.9); LYMPH % 16.2 % (8-40); MCH 28.2 pg (25.7-33.7); MCHC 32.9 g/dl (32.0-35.9); MEAN CELL VOLUME 85.7 fl (80-96); MEAN PLT VOLUME 9.2 fl (7.5-11.1); MONO % 11.6 % (3.8-10.2); NEUT % 71.5 % (42.8-82.8); PLATELET COUNT 190 K/MM3 (134-434); RBC 3.32 M/mm3 (4.00-5.60); RDW 14.7 % (11.9-15.9); WHITE BLOOD COUNT 8.9 K/mm3 (4.0-10.0)
--- NOTE | 2017-11-16 07:48 | PN ---
Physical Exam: 24H Events: yesterday - took back to OR for hematoma evacuation, found to have single bleeding vessel (EBL 800cc) ON- no events AM - normotensive BP 120's/60's SUBJECTIVE: Patient seen and examined. Feels tired, reports pain well controlled with JAVASCRIPT WEB DEVELOPER; continues to have scrotal swelling/tenderness OBJECTIVE: Vital Signs Period Temp Pulse Resp BP Sys/Ramon Pulse Ox Last 24 Hr 97.8 F-99.2 F 86-98 14-22 91-143/39-87 90-100 GENERAL: aaox3, nad LUNGS: CTAB, no wheezes, rales or rhonchi appreciated HEART: rrr, normal s1/s2, no m/r/g ABDOMEN: abdominal binder in place, 2x JPs draining serosanguineous fluid LOWER EXTREMITIES: 2+ DP pulses, wwp, no edema CBC, BMP 11/16/17 06:30 11/16/17 06:25 Hepatic Panel Total Bilirubin 0.6 mg/dL (0.2-1.0) 11/16/17 06:25 AST 24 U/L (15-37) D 11/16/17 06:25 ALT 44 U/L (12-78) D 11/16/17 06:25 Alkaline Phosphatase 42 U/L (45-117) L D 11/16/17 06:25 Albumin 3.0 g/dl (3.4-5.0) L D 11/16/17 06:25 Active Medications Acetaminophen (Tylenol -) 650 mg PO Q4H PRN PRN Reason: PAIN LEVEL 6-10 Last Admin: 11/16/17 06:37 Dose: 650 mg Albuterol Sulfate (Ventolin 0.083% Nebulizer Soln -) 1 amp NEB Q4H PRN PRN Reason: SHORT OF BREATH/WHEEZING Last Admin: 11/16/17 07:21 Dose: 1 amp Docusate Sodium (Colace -) 100 mg PO BID [facility] Last Admin: 11/15/17 22:25 Dose: 100 mg Fentanyl (Sublimaze Injection -) 50 mcg IVPUSH [id number] PRN PRN Reason: PAIN-PACU ORDER X 4 DOSES ONLY Last Admin: 11/15/17 15:10 Dose: 50 mcg Hydromorphone HCl (Dilaudid Injection -) 0.5 mg IVPUSH [id number] PRN PRN Reason: PAIN-PACU ORDER X 4 DOSES ONLY Hydromorphone HCl (Dilaudid Inflated Ball Molder -) 10 mg JAVASCRIPT WEB DEVELOPER JAVASCRIPT WEB DEVELOPER ASHOK PRN Reason: Protocol Stop: 11/22/17 15:19 Last Admin: 11/16/17 02:36 Dose: 10 mg Cefazolin Sodium (Ancef 1 Gm Premixed Ivpb -) 1 gm in 50 mls @ 100 mls/hr IVPB Q8H-IV [facility] Last Admin: 11/16/17 02:22 Dose: 100 mls/hr Lactated Ringer's (Lactated Ringers Solution) 1,000 mls @ 150 mls/hr IV ASDIR [facility] Last Admin: 11/16/17 06:37 Dose: 150 mls/hr Ondansetron HCl (Zofran Injection) 4 mg IVPUSH Q6H PRN PRN Reason: NAUSEA AND/OR VOMITING Ondansetron HCl (Zofran Injection) 4 mg IVPUSH Q4H PRN PRN Reason: NAUSEA AND/OR VOMITING Ondansetron HCl (Zofran Injection) 4 mg IVPUSH Q6H PRN PRN Reason: NAUSEA AND/OR VOMITING ASSESSMENT/PLAN: 32yo man with PMH of HTN who is s/p abdominoplasty and umbilical hernia repair c /b subcutaneous hematoma who was found have poorly controlled HTN following surgery. #POD3 s/p abdominoplasty and umbilical hernia repair, POD1 s/p subq hematoma evacuation with TICO drain repositioning -Pain control with Dilaudid JAVASCRIPT WEB DEVELOPER and Tylenol 650mg Q4H PRN -Rest of management per plastics #HTN, currently normotensive w/o medication -Recommend continue to hold home Norvasc for now, resume on discharge or if SBP >140 consistently -Consider d/c fluids if tolerating diet -d/w patient to have OP work-up for secondary causes of HTN #acute blood anemia -Repeat CBC in afternoon -If stable, would not transfuse #FEN IVFs -> d/c if tolerating diet monitor lytes Na controlled diet Will follow with you. Plan d/w attending Dr. Ranjit Robbins MD PGY1- Internal Medicine Visit type - Emergency Visit Emergency Visit: No - New Patient This patient is new to me today: No - Critical Care Critical Care patient: No
[2017-11-16 08:57] LABS: ALK PHOS 42 U/L (45-117); ANION GAP 11 (8-16); BILIRUBIN,TOTAL 0.6 mg/dL (0.2-1.0); BLOOD UREA NITROGEN 10 mg/dL (7-18); CALCIUM 8.2 mg/dL (8.5-10.1); CHLORIDE 99 mmol/L (98-107); CO2 28 mmol/L (21-32); CREATININE 1.2 mg/dL (0.7-1.3); GLUCOSE,RANDOM 101 mg/dL (74-106); MAGNESIUM 2.1 mg/dL (1.8-2.4); PHOSPHOROUS 3.7 mg/dL (2.5-4.9); POTASSIUM 4.3 mmol/L (3.5-5.1); SGOT/AST 24 U/L (15-37); SGPT/ALT 44 U/L (12-78); SODIUM 138 mmol/L (136-145); TOT PROT 5.7 g/dl (6.4-8.2)
[2017-11-16] MEDS ORDERED: amLODIPine BESYLATE 5 MG TABLET (FP) PO SCH (10:00)
[2017-11-16] MEDS ORDERED: amLODIPine BESYLATE 10 MG TABLET (FP) PO SCH (10:00)
--- NOTE | 2017-11-16 10:47 | PN ---
Teaching Attending Note Name of Resident: Lavonne Robbins ATTENDING PHYSICIAN STATEMENT I saw and evaluated the patient. I reviewed the resident's note and discussed the case with the resident. I agree with the resident's findings and plan as documented. SUBJECTIVE:continues to have pain but improved with pain medications. denies using any supplements for working out. never been worked up for 2ndary causes of HTN. denies Cp, SOB, fever, chills, N/V/C/D OBJECTIVE: Last Vital Signs Temp Pulse Resp BP Pulse Ox 98.4 F 97 H 18 120/62 98 11/16/17 06:00 11/16/17 06:00 11/16/17 06:00 11/16/17 06:00 11/15/17 21:00 General alert ASSESSMENT AND PLAN: 32yo M with PMH HTN presented for scheduled ventral/umbilica hernia repair and abdominoplasty was consulted by surgical team for BP control 1. HTN- now controlled but has been off medications for 24H. will continue to monitor and hold. will re-start as BP improves. should have workup for other causes of HTN as outpatient. 2. Umbilical/ventral hernia repair and abdominoplasty- s/p Open ventral/ umbilical hernia repiar with mesh and abdominoplasty with umbilical float . and evacuation of hematoma and control of bleeding vessel 11/15. bedrest. abdominal binders. pain control. management per plastics. would d/c fluids if tolerating diet 3. Acute blood loss anemia- acute drop in Hgb 800cc acute blood loss. would repeat cbc in afternoon. if stable would not transfuse. 4. thank you for this consultative opportunity. will follow
[2017-11-16] MEDS: DOCUSATE SODIUM 100 MG CAPSULE (FP) PO SCH ×2 (11:27→22:13)
--- NOTE | 2017-11-16 12:22 | PN ---
Progress Note (short form) - Note Progress Note: POD #1 evacuation of hematoma following abdominoplasty with hernia repair on 11/13/17. Patient seen and examined at bedside. States his pain has improved significantly and he feels much better overall. He denies any CP, SOB, N/V, blurred vision, Fever or chills. Vital Signs Temp 98.4 F 11/16/17 06:00 Pulse 92 H 11/16/17 06:36 Resp 18 11/16/17 06:36 BP 128/72 11/16/17 06:36 Pulse Ox 98 11/15/17 21:00 Intake & Output 11/15/17 11/16/17 11/16/17 23:59 11:59 23:59 Intake Total 1070 1025 Output Total 2467 1625 Balance -1397 -600 Intake: IV 1050 975 Lactated Ringers Solution 975 1,000 ml @ 150 mls/hr IV ASDIR ASHOK Rx#: [id number] Lactated Ringers Solution 750 1,000 ml @ 150 mls/hr IV ASDIR ASHOK Rx#: [id number] IVPB 20 50 Output: Drainage 267 125 RIGHT ALVIN 52 40 left alvin drain 115 85 Urine 1400 1500 Void 1500 Estimated Blood Loss 800 Other: Voiding Method Indwelling Catheter Bowel Movement No CBC, BMP 11/16/17 06:30 11/16/17 06:25 PE: A&Ox3, NAD unlabored resp on RA Abdomen: diffuse ecchymosis extending from at subxyphoid space to umbilicus, the abdomen is flat and non-distended with no evidence of collection or fluctuance. Diffuse TTP throughout all quadrants appropriate to status. Incision C/D/I with dressing in place. Slight ss drainage around right drain site but no evidence of collection and drain functioning. ALVIN at left lower abdomen in good position and functioning. Both drains with SS discharge. . b/l LE compartments soft, supple and non-tender with +2 pedal pulses Problem List - Problems (1) Hematoma Assessment/Plan: POD#3 Abdominoplasty with hernia repair, POD # 1 evacuation of hematoma with asymptomatic post op anemia. Plan: 1) Continue abdomnial binders x2 at all times 2) OOB with PT/assit, DO NOT ENGAGE CORE- roll in and out of bed 3) DVT and GI prophylaxis 4) Wean off MEDICAL RECORD LIBRARIAN 5) Trend H&H Evaluation and plan discussed with Dr Nelson and Dr Harris Code(s): T14.8XXA - OTHER INJURY OF UNSPECIFIED BODY REGION, INITIAL ENCOUNTER (3) S/P hernia repair Code(s): Z98.890 - OTHER SPECIFIED POSTPROCEDURAL STATES; Z87.19 - PERSONAL HISTORY OF OTHER DISEASES OF THE DIGESTIVE SYSTEM
[2017-11-16 16:39] LABS: HEMATOCRIT 26.6 % (35.4-49); HEMOGLOBIN 8.8 GM/dL (11.7-16.9); MCH 28.2 pg (25.7-33.7); MEAN CELL VOLUME 85.4 fl (80-96); MEAN PLT VOLUME 9.4 fl (7.5-11.1); PLATELET COUNT 177 K/MM3 (134-434); RBC 3.11 M/mm3 (4.00-5.60); RDW 14.7 % (11.9-15.9); WHITE BLOOD COUNT 7.2 K/mm3 (4.0-10.0)
--- NOTE | 2017-11-16 18:24 | PN ---
Progress Note (short form) - Note Progress Note: POD 1 Evacuation of hematoma, washout, oversewing of bleeding vessel Pain controlled On regular diet and tolerating Vital Signs Period Temp Pulse Resp BP Sys/Ramon Pulse Ox Last 24 Hr 98.2 F-99.2 F 90-98 18-20 119-130/59-72 98-98 Abd soft, wound clean TICO x 2 serosanguinous Left TICO: 115ml /85ml/ 50ml Right TICO: 52ml/ 40ml/ 70ml CBC, BMP 11/16/17 15:30 11/16/17 06:25 Abdominal binder CBC in am PT Pain control
[2017-11-17] MEDS: CEFAZOLIN 1 GM/D5W 1 GM/50 ML BAG IVPB SCH ×3 (01:18→17:37)
[2017-11-17] MEDS: ACETAMINOPHEN 325 MG TABLET (FP) PO PRN ×3 (04:00→17:34)
[2017-11-17 07:42] LABS: HEMATOCRIT 28.7 % (35.4-49); HEMOGLOBIN 9.6 GM/dL (11.7-16.9); MCH 28.6 pg (25.7-33.7); MCHC 33.4 g/dl (32.0-35.9); MEAN CELL VOLUME 85.6 fl (80-96); MEAN PLT VOLUME 9.1 fl (7.5-11.1); PLATELET COUNT 190 K/MM3 (134-434); RBC 3.35 M/mm3 (4.00-5.60); RDW 14.3 % (11.9-15.9); WHITE BLOOD COUNT 6.9 K/mm3 (4.0-10.0)
--- NOTE | 2017-11-17 09:11 | PN ---
Progress Note, Physician Chief Complaint: Pt. having pain that is controlled by PROCESSOR SOLID PROPELLANT. Plan today is ambulation then possibly home. - Current Medication List Current Medications: Active Medications Acetaminophen (Tylenol -) 650 mg PO Q4H PRN PRN Reason: PAIN LEVEL 6-10 Last Admin: 11/17/17 04:00 Dose: 650 mg Albuterol Sulfate (Ventolin 0.083% Nebulizer Soln -) 1 amp NEB Q4H PRN PRN Reason: SHORT OF BREATH/WHEEZING Last Admin: 11/16/17 20:15 Dose: 1 amp Docusate Sodium (Colace -) 100 mg PO BID [facility] Last Admin: 11/16/17 22:13 Dose: 100 mg Fentanyl (Sublimaze Injection -) 50 mcg IVPUSH [id number] PRN PRN Reason: PAIN-PACU ORDER X 4 DOSES ONLY Last Admin: 11/15/17 15:10 Dose: 50 mcg Hydromorphone HCl (Dilaudid Injection -) 0.5 mg IVPUSH [id number] PRN PRN Reason: PAIN-PACU ORDER X 4 DOSES ONLY Hydromorphone HCl (Dilaudid Marketing Account Manager -) 10 mg PROCESSOR SOLID PROPELLANT PROCESSOR SOLID PROPELLANT A[facility]OK PRN Reason: Protocol Stop: 11/22/17 15:19 Last Admin: 11/16/17 18:29 Dose: 10 mg Cefazolin Sodium (Ancef 1 Gm Premixed Ivpb -) 1 gm in 50 mls @ 100 mls/hr IVPB Q8H-IV [facility] Last Admin: 11/17/17 01:18 Dose: 100 mls/hr Ondansetron HCl (Zofran Injection) 4 mg IVPUSH Q6H PRN PRN Reason: NAUSEA AND/OR VOMITING Ondansetron HCl (Zofran Injection) 4 mg IVPUSH Q4H PRN PRN Reason: NAUSEA AND/OR VOMITING Ondansetron HCl (Zofran Injection) 4 mg IVPUSH Q6H PRN PRN Reason: NAUSEA AND/OR VOMITING - Objective Vital Signs: Vital Signs Temperature 98.8 F 11/17/17 05:30 Pulse Rate 93 H 11/17/17 05:30 Respiratory Rate 18 11/17/17 05:30 Blood Pressure 129/80 11/17/17 05:30 O2 Sat by Pulse Oximetry (%) 94 L 04/07/18 05:00 Constitutional: Yes: Well Nourished, No Distress, Calm Musculoskeletal: Yes: WNL Neurological: Yes: WNL, Alert, Oriented Labs: CBC, BMP 11/17/17 06:00 11/16/17 06:25 Assessment/Plan POD#2 s/p evacuation of hematoma abdominal incision. Doing well. D/C PROCESSOR SOLID PROPELLANT to transition to home. Start Oxycodone 10mg q3prn.
--- NOTE | 2017-11-17 09:56 | PN ---
Progress Note (short form) - Note Progress Note: c/o abdominal pain and requesting pain medication. denies CP, SOB, fever, chills , KING or blurred vision Current Medications Generic Name Dose Route Start Last Admin Trade Name Freq PRN Reason Stop Dose Admin Acetaminophen 650 mg 11/15/17 22:15 11/17/17 04:00 Tylenol - PO 650 mg Q4H PRN Administration PAIN LEVEL 6-10 Albuterol Sulfate 1 amp 11/15/17 15:28 11/16/17 20:15 Ventolin 0.083% Nebulizer Soln - NEB 1 amp Q4H PRN Administration SHORT OF BREATH/WHEEZING Docusate Sodium 100 mg 11/15/17 22:00 11/16/17 22:13 Colace - PO 100 mg BID ASHOK Administration Fentanyl 50 mcg 11/15/17 15:06 11/15/17 15:10 Sublimaze Injection - IVPUSH 50 mcg [id number] PRN Administration PAIN-PACU ORDER X 4 DOSES ONLY Hydromorphone HCl 0.5 mg 11/15/17 15:06 Dilaudid Injection - IVPUSH [id number] PRN PAIN-PACU ORDER X 4 DOSES ONLY Hydromorphone HCl 10 mg 11/15/17 15:30 11/16/17 18:29 Dilaudid Caustics Loader - DIRECTOR OF CARDIAC REHABILITATION 11/22/17 15:19 10 mg DIRECTOR OF CARDIAC REHABILITATION ASHOK Administration Protocol Cefazolin Sodium 1 gm in 50 mls @ 100 mls/hr 11/15/17 18:00 11/17/17 01:18 Ancef 1 Gm Premixed Ivpb - IVPB 100 mls/hr Q8H-IV ASHOK Administration Ondansetron HCl 4 mg 11/15/17 15:06 Zofran Injection IVPUSH Q6H PRN NAUSEA AND/OR VOMITING Ondansetron HCl 4 mg 11/15/17 15:18 Zofran Injection IVPUSH Q4H PRN NAUSEA AND/OR VOMITING Ondansetron HCl 4 mg 11/15/17 15:28 Zofran Injection IVPUSH Q6H PRN NAUSEA AND/OR VOMITING Last Vital Signs Temp Pulse Resp BP Pulse Ox 98.8 F 93 H 18 129/80 94 L 11/17/17 05:30 11/17/17 05:30 11/17/17 05:30 11/17/17 05:30 11/17/17 05:00 General alert ASSESSMENT AND PLAN: 32yo M with PMH HTN presented for scheduled ventral/umbilica hernia repair and abdominoplasty was consulted by surgical team for BP control 1. HTN- now controlled but has been off medications for >24H. possible lowered by pain medications. would cont to hold medication on discharge. pt does have BP cuff at home encouraged pt to check BP daily and when having symptoms and take norvasc if SBP >140. explained will liekly require to go back on medication and should see PMD in 1 week for BP check and possible 2ndary workup for HTN. 2. Umbilical/ventral hernia repair and abdominoplasty- s/p Open ventral/ umbilical hernia repiar with mesh and abdominoplasty with umbilical float . and evacuation of hematoma and control of bleeding vessel 11/15. abdominal binders. +TICO drain x2. pain control. management per plastics. 3. Acute blood loss anemia- acute drop in Hgb 800cc acute blood loss. Hgb stable. no indiction for txn 4. Possible D/c home today by plastics. no medical reason to hold discharge.if remains hospitalized will cont to follow Visit type - Emergency Visit Emergency Visit: Yes ED Registration Date: 11/13/17 Care time: The patient presented to the Emergency Department on the above date and was hospitalized for further evaluation of their emergent condition. - New Patient This patient is new to me today: No - Critical Care Critical Care patient: No - Discharge Referral Referred to [facility] Med P.C.: No
[2017-11-17] MEDS: oxyCODONE HCL 5 MG TABLET PO PRN ×4 (10:40→20:50)
[2017-11-17] MEDS ORDERED: oxyCODONE HCL 5 MG TABLET ONE (10:40)
[2017-11-17] MEDS: DOCUSATE SODIUM 100 MG CAPSULE (FP) PO SCH ×2 (10:42→21:00)
--- NOTE | 2017-11-17 15:43 | PN ---
Progress Note (short form) - Note Progress Note: No acute events Pain controlled On diet Vital Signs Period Temp Pulse Resp BP Sys/Ramon Pulse Ox Last 24 Hr 98.5 F-99.4 F 90-107 18-20 120-135/74-84 94-95 Abd soft, wound c/d/i TICO serosanguinous x 2 CBC, BMP 11/17/17 06:00 11/16/17 06:25 D/C c[place] OOB/Ambulate Discharge planning in am
[2017-11-17] MEDS ORDERED: amLODIPine BESYLATE 5 MG TABLET (FP) PO ONE (17:00)
[2017-11-18] MEDS: CEFAZOLIN 1 GM/D5W 1 GM/50 ML BAG IVPB SCH ×3 (02:20→11:04)
[2017-11-18] MEDS: oxyCODONE HCL 5 MG TABLET PO PRN ×3 (02:28→12:21)
[2017-11-18] MEDS: ACETAMINOPHEN 325 MG TABLET (FP) PO PRN ×3 (02:30→12:21)
[2017-11-18] MEDS: DOCUSATE SODIUM 100 MG CAPSULE (FP) PO SCH ×2 (08:48→11:05)
--- NOTE | 2017-11-18 09:49 | PN ---
Progress Note (short form) - Note Progress Note: pain is more controlled. denies CP, SOB, fever, chills, KING or blurred vision Current Medications Generic Name Dose Route Start Last Admin Trade Name Freq PRN Reason Stop Dose Admin Acetaminophen 650 mg 11/15/17 22:15 11/18/17 08:48 Tylenol - PO 650 mg Q4H PRN Administration PAIN LEVEL 6-10 Albuterol Sulfate 1 amp 11/15/17 15:28 11/16/17 20:15 Ventolin 0.083% Nebulizer Soln - NEB 1 amp Q4H PRN Administration SHORT OF BREATH/WHEEZING Amlodipine Besylate 5 mg 11/18/17 10:00 Norvasc - PO DAILY ASHOK Docusate Sodium 100 mg 11/15/17 22:00 11/18/17 08:48 Colace - PO 100 mg BID ASHOK Administration Fentanyl 50 mcg 11/15/17 15:06 11/15/17 15:10 Sublimaze Injection - IVPUSH 50 mcg [id number] PRN Administration PAIN-PACU ORDER X 4 DOSES ONLY Hydromorphone HCl 0.5 mg 11/15/17 15:06 Dilaudid Injection - IVPUSH [id number] PRN PAIN-PACU ORDER X 4 DOSES ONLY Cefazolin Sodium 1 gm in 50 mls @ 100 mls/hr 11/15/17 18:00 11/18/17 08:47 Ancef 1 Gm Premixed Ivpb - IVPB 100 mls/hr Q8H-IV ASHOK Administration Ondansetron HCl 4 mg 11/15/17 15:18 Zofran Injection IVPUSH Q4H PRN NAUSEA AND/OR VOMITING Ondansetron HCl 4 mg 11/15/17 15:28 Zofran Injection IVPUSH Q6H PRN NAUSEA AND/OR VOMITING Oxycodone HCl 10 mg 11/17/17 13:23 11/18/17 08:48 Roxicodone - PO 10 mg Q3H PRN Administration PAIN LEVEL 6-10 Last Vital Signs Temp Pulse Resp BP Pulse Ox 98.2 F 79 20 135/89 95 11/18/17 06:00 11/18/17 06:00 11/18/17 06:00 11/18/17 06:00 11/17/17 21:00 General alert ASSESSMENT AND PLAN: 32yo M with PMH HTN presented for scheduled ventral/umbilica hernia repair and abdominoplasty was consulted by surgical team for BP control 1. HTN-BP elevated in the evening. re-started on norvasc. BP improved. encouraged to check BP daily and document readings and/or symptomatic. bring with him to PMD for BP titration. 2. Umbilical/ventral hernia repair and abdominoplasty- s/p Open ventral/ umbilical hernia repiar with mesh and abdominoplasty with umbilical float . and evacuation of hematoma and control of bleeding vessel 11/15. abdominal binders. +TICO drain x2. pain control. management per plastics. 3. Acute blood loss anemia- acute drop in Hgb 800cc acute blood loss. Hgb stable. no indiction for txn 4. d/c home by plastics. counselled on importance of medication compliance Visit type - Emergency Visit Emergency Visit: No - New Patient This patient is new to me today: No - Critical Care Critical Care patient: No - Discharge Referral Referred to [facility] Med P.C.: No
[2017-11-18] MEDS ORDERED: amLODIPine BESYLATE 5 MG TABLET (FP) PO SCH (10:00)
--- NOTE | 2017-11-18 13:28 | PN ---
Progress Note (short form) - Note Progress Note: No acute events Pain controlled On diet Vital Signs Period Temp Pulse Resp BP Sys/Ramon Pulse Ox Last 24 Hr 98.1 F-98.6 F 79-95 20-20 134-162/79-90 95-95 Abd soft, wound c/d/i Leonel x 2 serous Discharge home on BP medication per medical team for hypertension
[2017-11-18 15:59] VITALS: BP 133/76; PULSE 87; TEMP 98.8
== END 2017-11-18 18:07 | disposition home or self-care (01) | DRG 354 ==
LOC: JASUSAT 06:40 → J4S 14:45 → JASUSAT 14:46 → J4S 14:46 → JASUSAT 11-14 08:12 → J4S 11-14 08:12 → UNDOADMIN 11-14 08:12
PROVIDERS: ADMIT Surgery; ATTEND Surgery
PROC: 0WUF0JZ Supplement Abdominal Wall with Synthetic Substitute, Open Approach (ICD-10-PCS; principal; 2017-11-13 08:00)
PROC: 0W0F0ZZ Alteration of Abdominal Wall, Open Approach (ICD-10-PCS; 2017-11-13 08:00)
PROC: 0W3F0ZZ Control Bleeding in Abdominal Wall, Open Approach (ICD-10-PCS; 2017-11-15)
PROC: 0JC80ZZ Extirpation of Matter from Abdomen Subcutaneous Tissue and Fascia, Open Approach (ICD-10-PCS; 2017-11-15)
DX: K43.9 Ventral hernia without obstruction or gangrene (principal); D62 Acute posthemorrhagic anemia; K91.870 Postprocedural hematoma of a digestive system organ or structure following a digestive system procedure; K42.9 Umbilical hernia without obstruction or gangrene; I10 Essential (primary) hypertension; R06.2 Wheezing; Y83.8 Other surgical procedures as the cause of abnormal reaction of the patient, or of later complication, without mention of misadventure at the time of the procedure; Z98.890 Other specified postprocedural states
CPT/HCPCS: 36415; 71045-TC-FY; 80048; 80053; 83735; 84100; 85025; 85027; 86850; 86900; 86901; 88302-TC; 93970-TC; 94640; 94760; 97116-GP; 97162-GP; J0131; J1170; J1644